=== PATIENT | female | born 1945 | race Caucasian/White ===

== ENCOUNTER 2019-01-12 12:54 | Emergency (ER) | payer OTHER ==
--- NOTE | 2019-01-12 13:02 | PDOC ---
History of Present Illness - General Chief Complaint: Respiratory Stated Complaint: COLD SYMPTOM SINUS Time Seen by Provider: 01/12/19 13:02 History Source: Patient Exam Limitations: No Limitations - History of Present Illness Initial Comments: Pt presenting with complaints of facial pain and dry nasal congestion x3 weeks that has not resolved with outpatient antibiotics (azithromycin, finished Wednesday01/08/18). Over the past few days, the pt has continued to have dry congestion, dry cough, and subjective fevers/chills. She has not taken any OTC medications for this issue, and ran out of her flonase "months ago". Pt has had many episodes of chronic sinusitis, and sometimes needs "a few rounds of z-pack " for the sinusitis to resolve. Pt also states yesterday after she stood up from bed in the AM, she felt light-headed and sat down for a few minutes until the episode passed. She saw Dr. Alegria again in clinic yesterday, who had her hold her BP medications due to the light-headed episode and "low BP". Dr. Alegria called the pt today, stating her WBC was 14, and she should come to the ER for further evaluation to r/o infectious process. Pt denies any headache , vision changes, tinnitus, ear pain or discharge, syncope, chest pain, palpitations, SOB, nausea/vomiting, abdominal pain, urinary symptoms, diarrhea/ constipation, or leg swelling. Cards: Dr. Barry ENT: Dr. Swain Social: Pt smokes 1 pack per week. Denies any alcohol or drug use. Pt denies any recent travel or sick contacts. Surgical: tympanostomy tube R ear. Hernia repair. Family: no relevant history. 01/12/19 19:04 Past History - Travel Traveled outside of the country in the last 30 days: No Close contact w/someone who was outside of country & ill: No - Past Medical History Allergies/Adverse Reactions: Allergies Allergy/AdvReac Type Severity Reaction Status Date / Time nitrofurantoin Allergy Hives Verified 01/12/19 12:57 [From Macrobid] Penicillins Allergy Swelling Verified 01/12/19 12:57 Sulfa (Sulfonamide Allergy Vomiting Verified 01/12/19 12:57 Antibiotics) aspirin AdvReac Nausea Verified 01/12/19 12:57 Home Medications: Ambulatory Orders Amlodipine Besylate 10 mg PO DAILY 01/12/19 Doxycycline Monohydrate [Mondoxyne Nl] 100 mg PO BID 7 Days #14 capsule Esomeprazole Magnesium [Nexium 24Hr] 1 cap PO DAILY 01/12/19 Fluticasone Prop 0.05% Nasal [Flonase -] 1 - 2 spray NS DAILY PRN #1 spray.pump 01/12/19 Losartan Potassium 25 mg PO DAILY 01/12/19 Pseudoephedrine HCl [Sudafed] 30 mg PO Q6H PRN #30 tablet 01/12/19 - Immunization History Td Vaccination: Yes Immunization Up to Date: Yes - Suicide/Smoking/Psychosocial Hx Smoking Status: Yes Smoking History: Former smoker Number of Cigarettes Smoked Daily: 1 Hx Alcohol Use: No Substance Use Type: None Review of Systems - Review of Systems Able to Perform ROS?: Yes Is the patient limited Turkmen proficient: No Constitutional: Yes: See HPI, Chills, Fever (subjective over past few days), Weight Stable. No: Diaphoresis, Loss of Appetite, Night Sweats, Weakness HEENTM: Yes: See HPI, Nose Congestion. No: Eye Pain, Blurred Vision, Recent change in vision, Double Vision, Ear Pain, Ear Discharge, Nose Pain, Tinnitus, Nose Bleeding, Hearing Loss, Throat Pain, Throat Swelling, Difficulty Swallowing Respiratory: No: Cough, Shortness of Breath, Wheezing Cardiac (ROS): No: Chest Pain, Edema, Irregular Heart Rate, Lightheadedness, Palpitations, Syncope, Chest Tightness ABD/GI: No: Constipated, Diarrhea, Nausea, Poor Appetite, Poor Fluid Intake, Vomiting : No: Burning, Pain, Urgency Musculoskeletal: No: Back Pain, Joint Pain, Muscle Pain Integumentary: No: Rash Neurological: No: Headache, Numbness, Paresthesia, Weakness, Unsteady Gait, Ataxia, Dizziness Psychiatric: No: Sleep Pattern Change, Change in Appetite Endocrine: No: Increased Urine, Change in Weight Hematologic/Lymphatic: No: Anemia, Blood Clots, Easy Bleeding, Easy Bruising All Other Systems: Reviewed and Negative *Physical Exam - Physical Exam Comments: 01/12/19 19:06 Vitals stable, pt afebrile. Pt in NAD, normal body habitus. PE showed pt alert and oriented. production control analyst generally intact, muscular strength and sensation intact. Oropharynx without erythema or exudates. TMs showed tympanostomy tube intact on the R, with fluid behind TMs b/l, but no erythema or bulging. Facial tenderness present b/l under the orbits. Dry nasal congestion present. Hearing intact. Clear heart sounds, S1/S2, no JVD, b/l pedal edema, or heart murmur. Clear lung sounds, no respiratory distress, wheezes, crackles, or accessory muscle use. No abdominal or CVA tenderness to palpation, no rebound, no guarding. Abdomen soft , non-distended, and with normoactive bowel sounds. Skin without jaundice or rash. ED Treatment Course - LABORATORY CBC & Chemistry Diagram: 01/12/19 14:25 Medical Decision Making - Medical Decision Making Pt was seen at bedside, also will be seen by attending Dr. Toledo. Pt presenting with complaints of facial pain and dry nasal congestion x3 weeks that has not resolved with outpatient antibiotics (azithromycin, finished Wednesday01/08/18). Over the past few days, the pt has continued to have dry congestion, dry cough, and subjective fevers/chills. She has not taken any OTC medications for this issue, and ran out of her flonase "months ago". Pt has had many episodes of chronic sinusitis, and sometimes needs "a few rounds of z-pack " for the sinusitis to resolve. Pt also states yesterday after she stood up from bed in the AM, she felt light-headed and sat down for a few minutes until the episode passed. She saw Dr. Alegria again in clinic yesterday, who had her hold her BP medications due to the light-headed episode and "low BP". Dr. Alegria called the pt today, stating her WBC was 14, and she should come to the ER for further evaluation to r/o infectious process. Pt denies any headache , vision changes, tinnitus, ear pain or discharge, syncope, chest pain, palpitations, SOB, nausea/vomiting, abdominal pain, urinary symptoms, diarrhea/ constipation, or leg swelling. Vitals stable, pt afebrile. Pt in NAD, normal body habitus. PE showed pt alert and oriented. production control analyst generally intact, muscular strength and sensation intact. Oropharynx without erythema or exudates. TMs showed tympanostomy tube intact on the R, with fluid behind TMs b/l, but no erythema or bulging. Facial tenderness present b/l under the orbits. Dry nasal congestion present. Hearing intact. Clear heart sounds, S1/S2, no JVD, b/l pedal edema, or heart murmur. Clear lung sounds, no respiratory distress, wheezes, crackles, or accessory muscle use. No abdominal or CVA tenderness to palpation, no rebound, no guarding. Abdomen soft , non-distended, and with normoactive bowel sounds. Skin without jaundice or rash. Considering unresolved sinusitis vs viral URI vs pneumonia vs otitis. Ordered work-up including CBC, influenza, and chest x-ray PA and lateral. No interventions provided at this time. Will continue to reassess pt and monitor for symptomatic improvement. 01/12/19 14:52 [id number] RAD/CHEST PA & LAT Clinical history: Sinusitis and cough. Rule out infiltrate. Comparison: 05/18/2018. PA and lateral views of the chest are supplied and demonstrate uncoiling of the aorta and degenerative changes of the dorsal spine. No heart failure, effusion or consolidation is seen. Markings are increased in the medial right lower lung zone compared to prior study and interstitial infiltrate cannot be excluded. Additionally, there is platelike atelectasis in the left CP angle at this time IMPRESSION: Increased markings medial right lower lung zone. Rule out interstitial infiltrate. Platelike atelectasis left CP angle. Clinical correlation advised. 01/12/19 14:58 01/12/19 18:49 CBC showed WBC WNL. Due to increased lung markings and continued sinus pressure, will provide pt PO doxycycline (100 mg PO BID x7 days) to cover for potential pneumonia and sinusitis. Pt states she has taken that medication before with no allergic symptoms. Also sent flonase and sudafed to pt pharmacy. Advised pt to take sudafed Q6hr PRN due to potential effect on pt BP. Spoke with Dr. Alegria, who agreed with plan, and will also the pt in his office for follow-up. 01/12/19 19:06 *DC/Admit/Observation/Transfer Diagnosis at time of Disposition: Sinusitis Qualifiers: Sinusitis location: unspecified location Chronicity: chronic Qualified Code(s) : J32.9 - Chronic sinusitis, unspecified - Discharge Dispostion Disposition: HOME Condition at time of disposition: Good Decision to Admit order: No - Prescriptions Prescriptions: Doxycycline Monohydrate [Mondoxyne Nl] 100 mg PO BID 7 Days #14 capsule Fluticasone Prop 0.05% Nasal [Flonase -] 1 - 2 spray NS DAILY PRN #1 spray.pump PRN Reason: Nasal Congestion Pseudoephedrine HCl [Sudafed] 30 mg PO Q6H PRN #30 tablet PRN Reason: Nasal Congestion - Referrals Referrals: Kian Alegria MD [Staff Physician] - Blake Swain MD [Staff Physician] - - Patient Instructions Printed Discharge Instructions: DI for Sinusitis Additional Instructions: You were seen in the ER today for a recurrence of your sinusitis. The results of your labs today were normal, and your flu swab is pending with the lab. Your chest x-ray showed a mild infiltrate, which may be due to a viral infection. Please follow-up with your primary care doctor and ENT within 1-2 days to discuss your visit and make sure your symptoms have improved. Please return to the ER if you have any worsening pain, development of fevers or chills, loss of consciousness, nasal drainage that worsens or becomes green/yellow, worsening cough, inability to tolerate food or fluids, or any other concerns. We have sent a new antibiotic to your pharmacy to cover for a sinus and lung infection. We have also sent decongestants (flonase and sudafed). Please take these as prescribed and also follow with your primary care doctor. - Post Discharge Activity
[2019-01-12 13:29] VITALS: BP 136/86; PULSE 90; TEMP 98.8; BMI 21.2
[2019-01-12 14:45] LABS: EOS % 0.5 % (0-4.5)
[2019-01-12 14:54] LABS: BASO % 0.4 % (0-2.0); HEMATOCRIT 41.6 % (32.4-45.2); HEMOGLOBIN 13.4 GM/dl (10.7-15.3); LYMPH % 19.6 % (8-40); MCH 30.7 pg (25.7-33.7); MCHC 32.3 g/dl (32.0-36.0); MEAN CELL VOLUME 95.1 fl (80-96); MEAN PLT VOLUME 8.3 fl (7.5-11.1); MONO % 9.4 % (3.8-10.2); NEUT % 70.1 % (42.8-82.8); PLATELET COUNT 213 K/MM3 (134-434); RBC 4.37 M/mm3 (3.60-5.2); RDW 13.3 % (11.6-15.6); WHITE BLOOD COUNT 5.8 K/mm3 (4.0-10.8)
--- NOTE | 2019-01-12 16:04 | PDOC ---
Attending Attestation - Resident Resident Name: TraciSharee - ED Attending Attestation I have performed the following: I have examined & evaluated the patient, The case was reviewed & discussed with the resident, I agree w/resident's findings & plan, Exceptions are as noted - Physicial Exam PE: 01/12/19 16:00 awake alert lungs clear bilaterally heart rrr no mrg abd soft nt nd. no cva tenderness. skin warm an dry no rash. nuero alert oriented x 3. - Medical Decision Making 01/12/19 16:01 73 yo F h/o HTN here with c/o sinus congestion cough, myalgia, fever. was treated with zpak finished one week ago. saw dr alegria yesterday who parvez blood work wbc 14. called pt today told to come to ed. overall pt feels improved. cough nonproductive. stil has nasal congestio and frontal sinus pain. no rash. no travel. no n/v plan cxr rpt labs, flu swab. cxr with mild atelectasis vs. infiltrate. wbc improved to 5. will recommend flonase, given doxycycline , dc home. flue negative at [facility] office. . d/ w dr enriquez will fu with patient. 01/12/19 16:05 <Kathy Toledo - Last Filed: 01/12/19 16:05> - HPI HPI: This patient is a 73 year old female with PMHx of HTN, who presents today for 3 week of sinus congestion that has not resolved with outpt antibiotics. She also reports recent nonproductive cough, myalgias, & fever. She states that she was treated with zpak and finished [address] Alegria yesterday who parvez blood work and pt had wbc 14. Patient reffered to ER by PCP for her unresolved facial pain. Denies nausea, vomiting, rash, recent travel. <Lou Bernabe - Last Filed: 01/12/19 16:19>
== END 2019-01-12 15:25 | disposition home or self-care (01) ==
LOC: FER 12:54
DX: J32.9 Chronic sinusitis, unspecified (principal); F17.210 Nicotine dependence, cigarettes, uncomplicated
CPT/HCPCS: 36415; 71046-TC-FY; 85025; 87804; 99282-25

== ENCOUNTER 2021-03-15 15:17 | Emergency (ER) | payer OTHER ==
[2021-03-15 16:02] VITALS: BP 145/88; PULSE 87; TEMP 98.7; BMI 21.1
[2021-03-15] MEDS ORDERED: SODIUM CHLORIDE 1,000 ML IV STA (16:30)
[2021-03-15] MEDS ORDERED: ONDANSETRON 4 MG/2 ML VIAL IVPUSH ONE (16:30)
[2021-03-15 17:11] LABS: BASO % 1.2 % (0-2.0); EOS % 0.3 % (0-4.5); HEMATOCRIT 42.7 % (32.4-45.2); HEMOGLOBIN 14.1 GM/dl (10.7-15.3); LYMPH % 18.4 % (8-40); MEAN CELL VOLUME 94.1 fl (80-96); MEAN PLT VOLUME 8.3 fl (7.5-11.1); MONO % 4.8 % (3.8-10.2); NEUT % 75.3 % (42.8-82.8); PLATELET COUNT 253 K/MM3 (134-434); RBC 4.54 M/mm3 (3.60-5.2); RDW 13.6 % (11.6-15.6); WHITE BLOOD COUNT 8.6 K/mm3 (4.0-10.8)
[2021-03-15 17:12] LABS: ANION GAP 11 MMOL/L (8-16); CALCIUM 9.7 mg/dl (8.5-10); CHLORIDE 103 mmol/L (98-107); CO2 27 mmol/L (21-32); GLUCOSE,RANDOM 104 mg/dl (74-106); SODIUM 141 mmol/L (136-145)
[2021-03-15 17:16] LABS: ALBUMIN 4.4 g/dl (3.4-5.0); ALK PHOS 76 U/L (45-117); BILIRUBIN,TOTAL 0.6 mg/dl (0.2-1); CREATININE 0.5 mg/dl (0.55-1.3); MAGNESIUM 1.6 mg/dL (1.8-2.4); SGOT/AST 18 U/L (15-37); SGPT/ALT 15 U/L (13-61)
== END 2021-03-15 19:14 | disposition home or self-care (01) ==
LOC: FER 15:17
PROC: 3E033NZ Introduction of Analgesics, Hypnotics, Sedatives into Peripheral Vein, Percutaneous Approach (ICD-10-PCS; principal; 2021-03-15)
PROC: 3E0337Z Introduction of Electrolytic and Water Balance Substance into Peripheral Vein, Percutaneous Approach (ICD-10-PCS; 2021-03-15)
DX: R42 Dizziness and giddiness (principal); R11.2 Nausea with vomiting, unspecified
CPT/HCPCS: 36415; 71046-TC-FY; 80053; 81003; 82550; 83735; 84484; 85025; 93005; 99285-25; C9803; U0003; U0005

== ENCOUNTER 2021-11-01 19:39 | Emergency (ER) | payer OTHER ==
[2021-11-01 19:45] VITALS: BMI 21.2
[2021-11-01 20:24] VITALS: BP 123/71; PULSE 75; TEMP 98.9
== END 2021-11-01 21:04 | disposition home or self-care (01) ==
LOC: FER 19:39
DX: S93.602A Unspecified sprain of left foot, initial encounter (principal); X50.0XXA Overexertion from strenuous movement or load, initial encounter
CPT/HCPCS: 73610-TC-LT-FY; 73630-TC-LT; 99283-25

== ENCOUNTER 2025-09-22 11:00 | Emergency (ER) | payer OTHER ==
[2025-09-22 11:11] VITALS: BP 109/74; PULSE 88; RESP 16; TEMP 98.2; BMI 19.7
[2025-09-22] MEDS ORDERED: diphenhydrAMINE HCL 25 MG CAPSULE (FP) PO ONE (12:03)
[2025-09-22] MEDS: diphenhydrAMINE HCL 25 MG CAPSULE (FP) PO ONE (12:09)
[2025-09-22 12:15] LABS: EPI CELLS 28 /uL (0-25.1); HYALINE CASTS 4 /uL (0-3.1); URINE APPEARANCE CLEAR; URINE BACTERIA 27 /uL (0-1359); URINE BILIRUBIN NEGATIVE (NEGATIVE); URINE COLOR YELLOW; URINE GLUCOSE (UA) NEGATIVE (NEGATIVE); URINE KETONE 1+ (NEGATIVE); URINE LEUK ESTERASE TRACE (NEGATIVE); URINE NITRITE NEGATIVE (NEGATIVE); URINE PROTEIN TRACE (NEGATIVE); URINE RBC 16 /uL (0-23.9); URINE UROBILINOGEN 0.2 mg/dL (0.2-1.0); URINE WBC 34 /uL (0-25.8)
[2025-09-22 12:45] LABS: ABSOLUTE IMMATURE GRANULOCYTES 0.02 x10^3/uL (0.0-0.031); BASOPHILS # 0.03 x10^3/uL (0.01-0.08); EOSINOPHIL % 0.9 % (0.7-5.8); EOSINOPHILS # 0.06 x10^3/uL (0.04-0.36); MCHC 31.7 g/dl (32.2-35.5); MEAN CELL VOLUME 96.4 fl (79.4-94.8); MEAN PLT VOLUME 9.2 fl (9.4-12.3); MONOCYTE # 0.54 x10^3/uL (0.24-0.86); MONOCYTE % 8.3 % (4.7-12.5); RDW 13.7 % (12.4-16.6)
[2025-09-22] MEDS: LACTATED RINGERS SOLUTION 1000 ML INFUS.BAG IV ONE (12:49)
[2025-09-22 13:00] LABS: GLUCOSE,RANDOM 98.0 mg/dL (74-106); TOT PROT 6.7 g/dl (6.4-8.2)
[2025-09-22 13:01] LABS: CO2 26.0 mmol/L (21-32)
[2025-09-22 13:03] LABS: ALK PHOS 83.0 U/L (40-150)
[2025-09-22 13:05] LABS: SGPT/ALT 14.0 U/L (0-55)
[2025-09-22 13:06] LABS: CREATININE 0.67 mg/dL (0.55-1.3); SGOT/AST 21.0 U/L (5-34)
== END 2025-09-22 14:24 | disposition home or self-care (01) ==
LOC: JER 11:00
DX: R42 Dizziness and giddiness (principal); R20.8 Other disturbances of skin sensation; T43.225A Adverse effect of selective serotonin reuptake inhibitors, initial encounter
CPT/HCPCS: 36415; 71045-TC-FY; 80053; 81003; 82962; 83735; 84484; 85025; 87086; 87637-QW; 93005; 93010; 99285-25